=== PATIENT | male | born 1980 | race Caucasian/White ===

== ENCOUNTER 2020-11-05 00:04 | Inpatient (IN) | payer OTHER ==
[~2020-11-05] VITALS: Ht 175.3 cm; Wt 90.3 kg
--- NOTE | 2020-11-05 00:13 | NUR ---
PATIENT CAME TO THE ER BED 12 C/O LEFT KNEE PAIN AND LEFT UPPER ARM PAIN W/ WOUNDS. PATIENT AT FIRST DENIED IV DRUG USAGE. PATIENT THEN ADMITTED TO USING DRUG VIA IV. PATIENT IS ALERT AND ORIENTED x4. DENIES SHORTNESS OF BREATH. PATIENT IS CONNECTED TO THE MONITOR.
[2020-11-05] MEDS ORDERED: VANCOMYCIN 1 GM in IV D5W 250 ML IV ONE (00:30)
[2020-11-05] MEDS ORDERED: IV NS 0.9% 500 ML BAG IV ONE (00:30)
[2020-11-05] MEDS ORDERED: VANCOMYCIN 1 GM VIAL ONE (01:21)
[2020-11-05 02:11] LABS: BASOPHILS # (AUTO) 0.1 K/uL (0.0-0.2); BASOPHILS % (AUTO) 0.3 % (0.0-2.0); EOSINOPHILS % (AUTO) 0.1 % (0.0-6.0); HEMATOCRIT 35 % (39-51); HEMOGLOBIN 11.4 g/dL (13.5-17.5); LYMPHOCYTES # (AUTO) 1.9 K/uL (0.8-4.8); LYMPHOCYTES % (AUTO) 9.9 % (20.0-44.0); MEAN CORPUSCULAR HGB CONC 33 g/dl (31.0-36.0); MEAN CORPUSCULAR VOLUME 86 fL (80-96); MONOCYTES # (AUTO) 2.2 K/uL (0.1-1.30); MONOCYTES % (AUTO) 11.6 % (2.0-12.0); NEUTROPHILS # (AUTO) 15.1 K/uL (1.8-8.9); NEUTROPHILS % (AUTO) 78.1 % (43.0-81.0); PLATELET COUNT (AUTO) 574 K/uL (150-450); RED BLOOD CELL COUNT(AUTO) 4.04 MIL/uL (4.5-6.0); WHITE BLOOD COUNT (AUTO) 19.4 K/uL (4.3-11.0)
[2020-11-05 02:21] LABS: CALCIUM, SERUM 8.5 mg/dL (8.5-10.1); CREATININE 0.9 mg/dL (0.6-1.3); POTASSIUM 3.7 mmol/L (3.5-5.1)
[2020-11-05 02:27] LABS: ALBUMIN 2.5 g/dL (3.4-5.0); BILIRUBIN,DIRECT 0.2 mg/dL (0.0-0.2); BILIRUBIN,TOTAL 0.4 mg/dL (0.2-1.0)
--- NOTE | 2020-11-05 03:29 | NUR ---
verbal auth given from insurance
[2020-11-05] MEDS ORDERED: MAGNESIUM HYDROXIDE 30 ML UDC PO PRN (04:00)
[2020-11-05] MEDS ORDERED: ZOLPIDEM TARTRATE 5 MG TABLET PO PRN (04:00)
[2020-11-05] MEDS ORDERED: ACETAMINOPHEN 325 MG TABLET PO PRN (04:00)
[2020-11-05] MEDS ORDERED: MAG HYDROX/AL HYDROX/SIMETH 30 ML UDC PO PRN (04:00)
[2020-11-05] MEDS ORDERED: ONDANSETRON HCL/PF 4 MG/2 ML VIAL IVP PRN (04:00)
[2020-11-05] MEDS ORDERED: Z GUARD REMEDY 2 OZ OINT TP PRN (04:00)
--- NOTE | 2020-11-05 05:25 | NUR ---
Attempted to call for report, staff is busy at the moment. Will receive a callback soon.
[2020-11-05] MEDS ORDERED: PIPERACILLIN /TAZOBACTAM 3.375 G in IV D5W 50 ML IV ONE (06:00)
[2020-11-05] MEDS ORDERED: PIPERACILLIN /TAZOBACTAM 3.375 G in IV D5W 50 ML IV SCH ×2 (06:00→12:00)
[2020-11-05] MEDS ORDERED: PIPERACILLIN /TAZOBACTAM 3.375 G VIAL IV ONE (06:06)
--- NOTE | 2020-11-05 06:12 | NUR ---
Attempted to give report, nurse is busy. will call back.
[2020-11-05] MEDS ORDERED: HYDROCODONE/APAP 10/325MG TABLET ONE (06:20)
[2020-11-05] MEDS: HYDROCODONE/APAP 10/325MG TABLET PO PRN ×2 (06:23→10:42)
--- NOTE | 2020-11-05 06:32 | NUR ---
report given to Nessa CANNON for HILARIO.
--- NOTE | 2020-11-05 06:44 | NUR ---
Patient taken to assigned room for alex.
--- NOTE | 2020-11-05 07:10 | NUR ---
MS MEETING COORDINATOR NOTE RECEIVED PATIENT IN BED. VITALS 137/77 HR 77, RR 18, TEMP 97.6, O2 SAT 98% ON ROOM AIR. PATIENT IS A/O X 4. BREATHING EVENLY AND NONLABORED ON ROOM AIR. PATIENT WAS ORIENTED TO THE ROOM AND HOW TO USE THE CALL LIGHT. BELONGINGS WERE ACCOUNTED FOR. PATIENT HAS IV ACCESS ON L & R FOREARM # 18 GAUGE PATENT AND INTACT. PATIENT HAS TWO WOUNDS ON LEFT UPPER ARM AND RIGHT UPPER ARM, PHOTOS PLACED IN CHART, WOUND CONSULT ORDERED AND MD AWARE. PATIENT COMPLAINS OF PAIN, WAS GIVEN MD LUIS AWARE OF PAIN. SAFETY MEASURES ARE IN PLACE BED LOW LOCKED CALL LIGHT WITHIN REACH, SIDE RAILS UP X 2, WILL CONTINUE TO MONITOR PATIENT.
--- NOTE | 2020-11-05 07:45 | NUR ---
RN NOTE DR VARGAS GAVE NEW ORDER FOR NICOTINE PATCH 14MG TRB. WILL CONTINUE TO MONITOR
[2020-11-05] MEDS: VANCOMYCIN 1 GM in IV D5W 250 ML IV SCH ×3 (07:59→23:12)
[2020-11-05 08:00] VITALS: BP 137/77
[2020-11-05] MEDS: NICOTINE PATCH (14MG) 14 MG PATCH.TD24 TD SCH (09:17)
[2020-11-05] MEDS: IV NS 0.9% 1,000 ML IV PRN (10:58)
[2020-11-05] MEDS: PIPERACILLIN /TAZOBACTAM 3.375 G in IV D5W 100 ML IV SCH ×2 (12:02→20:20)
[2020-11-05 16:00] VITALS: BP 137/86
--- NOTE | 2020-11-05 18:24 | NUR ---
MS RN CLOSING NOTE PATIENT RESTING IN BED PATIENT IS A/O X 4. PATIENT IS BREATHING EVENLY AND NONLABORED ON ROOM AIR. PATIENT HAS IV ACCESS ON L & R FOREARM # 18 GAUGE PATENT AND INTACT RUNNING NS @ 75 ML/HR. PATIENT HAS TWO WOUNDS ON LEFT UPPER ARM AND RIGHT UPPER ARM, DRESSING INTACT. PATIENT DOES NOT COMPLAIN OF PAIN @ THIS TIME. ALL MEDICATION GIVEN ORDER. SAFETY MEASURES ARE IN PLACE BED LOW LOCKED CALL LIGHT WITHIN REACH, SIDE RAILS UP X 2, WILL ENDORSE TO ONCOMING SHIFT
--- NOTE | 2020-11-05 19:35 | NUR ---
MS RN NOTES PATIENT RESTING IN BED PATIENT IS A/O X 4. PATIENT IS BREATHING EVENLY AND NONLABORED ON ROOM AIR. PATIENT HAS IV ACCESS ON L & R FOREARM # 18 GAUGE PATENT AND INTACT RUNNING NS @ 75 ML/HR. PATIENT HAS TWO WOUNDS ON LEFT UPPER ARM AND RIGHT UPPER ARM, DRESSING INTACT. PATIENT DOES NOT COMPLAIN OF PAIN AT THIS TIME. MEASURES ARE IN PLACE BED LOW LOCKED CALL LIGHT WITHIN REACH, SIDE RAILS UP X 2, WILL CONTINUE TO MONITOR.
[2020-11-05 20:13] VITALS: BP 150/84
[2020-11-06] MEDS: PIPERACILLIN /TAZOBACTAM 3.375 G in IV D5W 100 ML IV SCH ×3 (04:12→21:59)
[2020-11-06] MEDS: HYDROCODONE/APAP 10/325MG TABLET PO PRN ×3 (04:54→19:29)
--- NOTE | 2020-11-06 06:35 | NUR ---
MS RN NOTES PATIENT RESTING IN BED PATIENT IS A/O X 4. PATIENT IS BREATHING EVENLY AND NONLABORED ON ROOM AIR. PATIENT HAS IV ACCESS ON L & R FOREARM # 18 GAUGE PATENT AND INTACT RUNNING NS @ 75 ML/HR. PATIENT HAS TWO WOUNDS ON LEFT UPPER ARM AND RIGHT UPPER ARM, DRESSING INTACT. PATIENT DOES NOT COMPLAIN OF PAIN AT THIS TIME. PAIN MANAGEMENT PROVIDED WHEN NEEDED. MEASURES ARE IN PLACE BED LOW LOCKED CALL LIGHT WITHIN REACH, SIDE RAILS UP X 2, WILL ENDORSE CARE TO DAY SHIFT.
[2020-11-06 07:28] LABS: BASOPHILS % (AUTO) 0.2 % (0.0-2.0); EOSINOPHILS % (AUTO) 0.1 % (0.0-6.0); HEMATOCRIT 32 % (39-51); HEMOGLOBIN 10.7 g/dL (13.5-17.5); LYMPHOCYTES # (AUTO) 2.2 K/uL (0.8-4.8); LYMPHOCYTES % (AUTO) 10.4 % (20.0-44.0); MEAN CORPUSCULAR HGB CONC 33 g/dl (31.0-36.0); MEAN CORPUSCULAR VOLUME 87 fL (80-96); MONOCYTES # (AUTO) 2.3 K/uL (0.1-1.30); MONOCYTES % (AUTO) 10.7 % (2.0-12.0); NEUTROPHILS # (AUTO) 16.6 K/uL (1.8-8.9); NEUTROPHILS % (AUTO) 78.6 % (43.0-81.0); PLATELET COUNT (AUTO) 612 K/uL (150-450); RED BLOOD CELL COUNT(AUTO) 3.71 MIL/uL (4.5-6.0); WHITE BLOOD COUNT (AUTO) 21.2 K/uL (4.3-11.0)
--- NOTE | 2020-11-06 07:31 | NUR ---
MSRN OPENING NOTES PATIENT RESTING IN BED PATIENT IS A/O X 4. PATIENT IS BREATHING EVENLY AND NONLABORED ON ROOM AIR. PATIENT HAS IV ACCESS ON L & R FOREARM # 18 GAUGE PATENT AND INTACT RUNNING NS @ 75 ML/HR. PATIENT HAS TWO WOUNDS ON LEFT UPPER ARM AND RIGHT UPPER ARM, DRESSING INTACT. PATIENT DOES NOT COMPLAIN OF PAIN AT THIS TIME.BED LOW LOCKED CALL LIGHT WITHIN REACH AND ANSWERED PROMPTLY, SIDE RAILS UP X 2
[2020-11-06 07:35] LABS: CALCIUM, SERUM 8.2 mg/dL (8.5-10.1); CREATININE 0.7 mg/dL (0.6-1.3); POTASSIUM 3.3 mmol/L (3.5-5.1)
[2020-11-06 07:46] LABS: MAGNESIUM 2.2 mg/dL (1.8-2.4)
[2020-11-06 08:00] VITALS: BP 140/85
[2020-11-06] MEDS: VANCOMYCIN 1 GM in IV D5W 250 ML IV SCH (08:09)
[2020-11-06] MEDS: NICOTINE PATCH (14MG) 14 MG PATCH.TD24 TD SCH (08:09)
[2020-11-06] MEDS ORDERED: POTASSIUM CHLORIDE 20 MEQ TAB.PRT.SR PO SCH (10:00)
[2020-11-06 10:30] LABS: BAND % (MANUAL) 4 % (0.0-5.0); LYMPHOCYTES % (MANUAL) 16 % (16-48); METAMYELOCYTES % 1 % (0-0); MONOCYTES % (MANUAL) 8 % (0-11.0); MYELOCYTES % 1 % (0-0); NEUTROPHILS % (MANUAL) 70 (42-76)
[2020-11-06] MEDS: VANCOMYCIN 1.25 GM in IV D5W 250 ML IV SCH (15:11)
[2020-11-06 16:00] VITALS: BP 156/107
--- NOTE | 2020-11-06 19:12 | NUR ---
MS RN NOTES PATIENT RESTING IN BED PATIENT IS A/O X 4. PATIENT IS BREATHING EVENLY AND NONLABORED ON ROOM AIR. PATIENT HAS IV ACCESS ON R AC FOREARM # 18 GAUGE PATENT AND INTACT RUNNING NS @ 75 ML/HR. PATIENT HAS TWO WOUNDS ON LEFT UPPER ARM AND RIGHT UPPER ARM, DRESSING INTACT. PATIENT DOES NOT COMPLAIN OF PAIN AT THIS TIME.BED LOW LOCKED CALL LIGHT WITHIN REACH AND ANSWERED PROMPTLY, SIDE RAILS UP X 2 WILL CONTINUE TO MONITOR.
[2020-11-06 20:00] VITALS: BP 147/93
[2020-11-07] MEDS: VANCOMYCIN 1.25 GM in IV D5W 250 ML IV SCH ×3 (00:53→15:21)
[2020-11-07] MEDS: HYDROCODONE/APAP 10/325MG TABLET PO PRN (00:54)
[2020-11-07] MEDS: IV NS 0.9% 1,000 ML IV PRN (03:17)
[2020-11-07] MEDS: PIPERACILLIN /TAZOBACTAM 3.375 G in IV D5W 100 ML IV SCH ×2 (04:08→12:04)
[2020-11-07 06:32] LABS: BASOPHILS # (AUTO) 0.1 K/uL (0.0-0.2); BASOPHILS % (AUTO) 0.3 % (0.0-2.0); EOSINOPHILS % (AUTO) 0.1 % (0.0-6.0); HEMATOCRIT 33 % (39-51); HEMOGLOBIN 10.9 g/dL (13.5-17.5); LYMPHOCYTES # (AUTO) 2.1 K/uL (0.8-4.8); LYMPHOCYTES % (AUTO) 9.2 % (20.0-44.0); MEAN CORPUSCULAR HGB CONC 33 g/dl (31.0-36.0); MEAN CORPUSCULAR VOLUME 86 fL (80-96); MONOCYTES % (AUTO) 8.8 % (2.0-12.0); NEUTROPHILS # (AUTO) 18.7 K/uL (1.8-8.9); NEUTROPHILS % (AUTO) 81.6 % (43.0-81.0); PLATELET COUNT (AUTO) 709 K/uL (150-450); RED BLOOD CELL COUNT(AUTO) 3.86 MIL/uL (4.5-6.0); WHITE BLOOD COUNT (AUTO) 22.9 K/uL (4.3-11.0)
[2020-11-07 06:52] LABS: CALCIUM, SERUM 8.3 mg/dL (8.5-10.1); CREATININE 0.7 mg/dL (0.6-1.3); POTASSIUM 3.4 mmol/L (3.5-5.1)
--- NOTE | 2020-11-07 07:06 | NUR ---
MSRN OPENING NOTES PATIENT RESTING IN BED PATIENT IS A/O X 4. PATIENT IS BREATHING EVENLY AND NONLABORED ON ROOM AIR. PATIENT HAS IV ACCESS ON R FOREARM GAUGE PATENT AND INTACT RUNNING NS @ 75 ML/HR. PATIENT HAS TWO WOUNDS ON LEFT UPPER ARM AND RIGHT UPPER ARM, DRESSING INTACT. PATIENT DOES NOT COMPLAIN OF PAIN AT THIS TIME.BED LOW LOCKED CALL LIGHT WITHIN REACH AND ANSWERED PROMPTLY, SIDE RAILS UP X 2
[2020-11-07 08:00] VITALS: BP 144/87
[2020-11-07] MEDS: NICOTINE PATCH (14MG) 14 MG PATCH.TD24 TD SCH (08:00)
[2020-11-07 09:21] LABS: BAND % (MANUAL) 2 % (0.0-5.0); LYMPHOCYTES % (MANUAL) 8 % (16-48); METAMYELOCYTES % 1 % (0-0); MONOCYTES % (MANUAL) 7 % (0-11.0); MYELOCYTES % 4 % (0-0); NEUTROPHILS % (MANUAL) 78 (42-76)
[2020-11-07] MEDS ORDERED: POTASSIUM CHLORIDE 20 MEQ TAB.PRT.SR PO SCH (09:30)
--- NOTE | 2020-11-07 09:42 | NUR ---
WOUND CARE CONSULT: PT PRESENTS WITH HEALING AREAS TO LEFT ARM, S/P I&D, NO DRAINAGE NOTED. RECOMMENDATIONS MADE FOR SKIN PROTECTION AND WOUND CARE. DISCUSSED WITH NURSING STAFF. MD IN AGREEMENT WITH PLAN OF CARE.
[2020-11-07] MEDS ORDERED: NEOMY SULF/BACITRAC ZN/POLY 15 GM TUBE TP SCH (10:00)
--- NOTE | 2020-11-07 12:50 | NUR ---
"Blast Furnace Operator consult: resident services manager consult requested for homelessness and substance use. Patient is a 40-year-old, male. SW met with patient at his bedside in the med-surg unit. Patient presented calm and was resting. Patient was alert and oriented x4. Per chart, patient was brought in by ambulance on 11/05/20 for cellulitis and complaints of pain. Patient stated that he is currently homeless and lives on the [address]. Patient has been homeless for the last three years. Patient stated that he currently uses crutches due to left knee pain. SW asked the patient if he has access to social support and patient reported that he has not been in touch with his family but currently has a friend who lives on the street with him. SW asked the patient if he has a history of substance use. Patient initially denied substance use but later stated that he has a history of heroin use and his last use was from a couple of days ago. Patient stated that he has not experienced withdrawal symptoms and does not want to seek treatment for his heroin use. Patient denied history of mental illness. Patient denied current suicidal or homicidal ideation. SW offered the patient homeless resources and a list of Medication-Assisted Treatment clinics. Patient accepted the homeless resources but declined the MAT resources. Patient seems to be in the pre-contemplation stage of change and stated, I dont need the resources right now, Im ok. SW discussed discharge plans with the patient and patient stated that he will use public transportation to return to his prior living arrangement on the street. Patient has been provided with a walker. PLAN: Patient plans to return to his prior living arrangement on the street. No further SS intervention at this time, however, SW will remain available as needed. RESOURCES: Year-round shelters: [facility] [address] [place] [place] [address] ; [facility] [address] [place] [address]; [id number] [address] SPA 4 | [facility] [place] Provider: First [facility] Serve Address: [address], [address] # of Beds: 48 Population Served: [facility] Provider: First to Serve Address: [address] [facility], [address] # of Beds: 73 Population Served: [facility] SPA 6 | [facility] Provider: [facility] Address: [address] [facility] [address] # of Beds: 63 Population Served: [facility] SPA 3 | [facility] Provider: [facility] [employer] [place] Address: [address] [facility], [address] # of Beds: 75 Population Served: [facility] SPA 8 | [facility] Provider: [facility] [place] Address: [address] [facility], [address] # of Beds: 80 Population Served: [facility] | [facility] Provider: [facility] [place] Address: [address] [place] [address], [address] # of Beds: 85 Population Served: [facility] | [facility] Provider: Debbie tripath[facility] Address: Confidential (please call for location) # of Beds: 52 Population Served: [facility] | [facility] Provider: [facility] Address: [address] [facility], [address] # of Beds: 49 Population Served: [facility] Provider: First To Serve Address: [address] [place] [address], [address] # of Beds: 27 Population Served: [facility] Hygiene: [facility]: [address] [address] Russell ; [place] [facility] [address] [facility] ; [facility] [address] . Food Resources: [place] [employer] [facility] at [facility]- [address] [facility]; Meet Each Need with [facility] ([facility]) [address] [place]; [facility] [address] [facility]; [facility] [address] [place]. Mental Health resources provided: [facility] [address] [place], [place] [address] ; [facility] [place] [address] [facility] [address], [place] [address] ; [facility] [address] [facility] [place], [place] [id number] ; [facility] [address] [place], [place] [address] Healthcare Clinics: [facility] [address] [facility], [address] [place]. [place] ; [facility] [address] [facility] [address] [place] [address]; [facility] [address] [facility] [place] [phone]) [phone] Counseling--[facility] [address] [facility], [address] [place], [place] [phone] (Specializes in in-depth psychotherapy for emotional distress: anxiety, depression, interpersonal conflicts, life transitions, childhood abuse) PSYCHIATRIC OUTPATIENT SERVICES [facility] Partial Hospitalization and Intensive Outpatient Program (Managed Care and [place] Only) [address] [facility] [address] [facility] Partial Hospitalization and Outpatient Program [address] [place], [place] [id number] [facility] Partial Hospitalization and Outpatient Program [address] [place], [place] [id number] [facility] [place] [facility] [address] [facility] [place], [place] [address] [facility] Partial Hospitalization and Outpatient Program [address] [place], [place] [phone] "
[2020-11-07 16:00] VITALS: BP 118/88
--- NOTE | 2020-11-07 19:39 | NUR ---
MS RN Opening Notes Patient was last seen awake resting in bed. Patient is alert and oriented x4. Patient's on room air with no respiratory distress noted. Patient has a right upper arm midline, which is intact and patent. Patient's in no acute distress at this time. Safety measures in place: Bed locked, bed alarm on, side rails up x3, and call light within reach of the patient. Will continue to monitor the patient.
[2020-11-07 20:00] VITALS: BP 126/78
[2020-11-08 06:09] LABS: BASOPHILS # (AUTO) 0.1 K/uL (0.0-0.2); BASOPHILS % (AUTO) 0.3 % (0.0-2.0); HEMATOCRIT 35 % (39-51); HEMOGLOBIN 11.3 g/dL (13.5-17.5); LYMPHOCYTES # (AUTO) 2.2 K/uL (0.8-4.8); LYMPHOCYTES % (AUTO) 9.7 % (20.0-44.0); MEAN CORPUSCULAR HGB CONC 33 g/dl (31.0-36.0); MEAN CORPUSCULAR VOLUME 87 fL (80-96); MONOCYTES % (AUTO) 8.5 % (2.0-12.0); NEUTROPHILS # (AUTO) 18.7 K/uL (1.8-8.9); NEUTROPHILS % (AUTO) 81.5 % (43.0-81.0); PLATELET COUNT (AUTO) 696 K/uL (150-450); RED BLOOD CELL COUNT(AUTO) 3.96 MIL/uL (4.5-6.0)
[2020-11-08 07:10] LABS: CALCIUM, SERUM 8.2 mg/dL (8.5-10.1); CREATININE 0.9 mg/dL (0.6-1.3); MAGNESIUM 2.8 mg/dL (1.8-2.4); PHOSPHORUS 3.7 mg/dL (2.5-4.9); POTASSIUM 3.3 mmol/L (3.5-5.1)
--- NOTE | 2020-11-08 07:34 | NUR ---
MS RN Closing Notes Patient was last seen awake resting in bed. Patient is alert and oriented x4. Patient's on room air with no respiratory distress noted. Patient has a right upper arm midline, which is intact and patent. Patient's in no acute distress at this time. Safety measures in place: Bed locked, bed alarm on, side rails up x3, and call light within reach of the patient. Endorsed care to the day shift nurse.
[2020-11-08 08:00] VITALS: BP 142/86
[2020-11-08] MEDS: HYDROCODONE/APAP 10/325MG TABLET PO PRN (08:41)
[2020-11-08] MEDS: NICOTINE PATCH (14MG) 14 MG PATCH.TD24 TD SCH (08:42)
[2020-11-08] MEDS: VANCOMYCIN 1.25 GM in IV D5W 250 ML IV SCH ×2 (08:46)
--- NOTE | 2020-11-08 09:10 | NUR ---
Pt A/O x4, sitting up in bed after finishing breakfast tray. Pt stated he wanted to leave the hospital. RN attempted to give scheduled 0900 meds but pt did not want to wait for IV abx to finish. PICC line removed and AMA paperwork signed. Pt had on hospital gown and was attempting to leave without getting dressed. Pt stated he did not have any clothes to change into; pt was given pants and shirt from hospital supply. Pt advised that if he continued to have symptoms of infection such as redness at wound sites, increasing pain, red streaks, fever, dizziness, chills, please return to hospital ER as he has not cleared any infection that may be present due to not having adequate number of doses with IV abx. Pt ambulated out of unit at 0910.
[2020-11-08 09:42] LABS: BAND % (MANUAL) 1 % (0.0-5.0); LYMPHOCYTES % (MANUAL) 10 % (16-48); MONOCYTES % (MANUAL) 8 % (0-11.0); MYELOCYTES % 2 % (0-0); NEUTROPHILS % (MANUAL) 79 (42-76)
[2020-11-08] MEDS ORDERED: POTASSIUM CHLORIDE 20 MEQ TAB.PRT.SR PO ONE (10:00)
== END 2020-11-08 09:10 | disposition left against medical advice (07) | DRG 383 ==
LOC: ER 00:04 → MED 05:27
PROVIDERS: ADMIT Family Medicine; ATTEND Nurse Practitioner Acute Care
PROC: 05H933Z Insertion of Infusion Device into Right Brachial Vein, Percutaneous Approach (ICD-10-PCS; principal; 2020-11-07)
DX: L03.114 Cellulitis of left upper limb (principal); E44.0 Moderate protein-calorie malnutrition; E87.1 Hypo-osmolality and hyponatremia; L02.414 Cutaneous abscess of left upper limb; E86.1 Hypovolemia; L02.416 Cutaneous abscess of left lower limb; D63.8 Anemia in other chronic diseases classified elsewhere; D47.3 Essential (hemorrhagic) thrombocythemia; R73.9 Hyperglycemia, unspecified; Z59.0 Homelessness; Z72.0 Tobacco use; F41.9 Anxiety disorder, unspecified; F11.13 Opioid abuse with withdrawal
CPT/HCPCS: 36415; 73564-TC; 80048-TC; 80076-TC; 80202-TC; 82533; 83605-TC; 83735-TC; 84100-TC; 84443-TC; 85025-TC; 87040-TC; 87070-TC; 87081-TC; C9803; G0378; J2543; J3370; J7030; J7040; J7060

== ENCOUNTER 2022-04-15 15:20 | Emergency (ER) | payer OTHER ==
[~2022-04-15] VITALS: Ht 172.7 cm; Wt 68.0 kg
[2022-04-15] MEDS ORDERED: ONDANSETRON 4 MG TAB.RAPDIS ONE (16:20)
[2022-04-15] MEDS ORDERED: ONDANSETRON 4 MG TAB.RAPDIS SL ONE (16:30)
[2022-04-15] MEDS ORDERED: CLONIDINE HCL 0.1 MG TABLET PO ONE (17:00)
[2022-04-15] MEDS ORDERED: CLONIDINE HCL 0.1 MG TABLET ONE (17:05)
[2022-04-15 17:10] VITALS: BP 138/99
--- NOTE | 2022-04-15 17:10 | NUR ---
PT RESTLESS, AGITATED. DR UMANA AWARE. MEDICATED ORDERED.
--- NOTE | 2022-04-15 18:13 | NUR ---
SEEN AND EVALUATED BY DR UMANA. MEDICATED W/ NAUSEA AND WIDRAWAL MEDICATION. MORE CALM. COVID NEGATIVE. D/C TO PD IN STABLE CONDITION.
== END 2022-04-15 18:15 ==
LOC: ER 15:23
DX: F11.23 Opioid dependence with withdrawal (principal); R05.9 Cough, unspecified; Z20.822 Contact with and (suspected) exposure to COVID-19
CPT/HCPCS: 99283; 87426; Q0162; C9803